=== PATIENT | female | born 1995 | race Caucasian/White ===

== ENCOUNTER 2023-12-25 04:54 | Emergency (ER) | payer OTHER, SELFPAY ==
[2023-12-25 04:58] VITALS: BP 128/84; PULSE 77; RESP 16; TEMP 36.7; O2SAT 100; BMI 23.0
[2023-12-25 05:06] VITALS: BP 128/84; PULSE 89; O2SAT 98
--- NOTE | 2023-12-25 05:19 | ED_ITS ---
HPI - Female Genitourinary 2 General: Chief complaint: Urogenital-Female Stated complaint: Preg\Spotting Time Seen by Provider: 12/25/23 05:02 History of Present Illness: 28-year-old female presents emergency ro om she estimates she is approximately 5 weeks she is a G1, P0 LMP 12/18/2023. Patient's morning she began having some mild cramping and light spotting. She denies dysuria urgency or frequency. Associated symptoms: Deny abdominal pain Date of Last Menstrual Period: 11/18/23 Related Data Home Medications Medication Instructions Recorded Confirmed No Known Home Medications 11/08/23 11/08/23 Allergies Allergy/AdvReac Type Severity Reaction Status Date / Time No Known Allergies Allergy Unverified 11/08/23 17:29 Review of Systems 2 Const: Denies: fever(s) or chills Card: Denies: chest pain Resp: Denies: dyspnea GI: Denies: abdominal pain : Reports: vaginal bleeding; Denies: dysuria, urinary frequency, urinary urgency or pelvic pain Musc: Denies: neck pain or back pain Skin/Breast: Denies: rash PFSH ED 2 PFSH: Social History Smoking and tobacco/nicotine status: unknown if used tobacco/nicotine Female Reproductive History: Date of last menstrual period: 11/18/23 Physical Exam 2 Const: COMMON NORMALS: no acute distress GENERAL APPEARANCE: cooperative and comfortable ORIENTATION/CONSCIOUSNESS: Yes awake, Yes oriented to person, Yes oriented to place and Yes oriented to time HENMT: COMMON NORMALS: normocephalic, atraumatic and hearing grossly normal bilaterally HEAD & SCALP: normocephalic and atraumatic Resp: COMMON NORMALS: normal respiratory effort, No retractions, No use of accessory muscles and clear to auscultation bilaterally AUSCULTATION: clear to auscultation bilaterally Cardio: COMMON NORMALS: regular rate, regular rhythm and No murmurs present (Cardio) RATE: regular rate RHYTHM: regular rhythm GI: COMMON NORMALS: Soft to palpation and No hepatosplenomegaly present A USCULTATION: Yes normoactive bowel sounds PALPATION: Yes Soft to palpation, No Tenderness to palpation present (GI), No Guarding due to palpation present (GI) and Yes No hepatosplenomegaly present Extremity: COMMON NORMALS: normal to inspection, capillary refill normal, no clubbing, cyanosis or edema, no calf tenderness and no pedal edema Neuro: SENSORIUM/ORIENTATION: Yes oriented to person, Yes oriented to place and Yes oriented to time Skin: COMMON NORMALS: no rashes or lesions noted GENERAL SKIN EXAM: no rashes or lesions noted Course 2 Vital Signs: Vital signs: Vital Signs Temperature 98.1 F 12/25/23 04:58 Pulse Rate 78 12/25/23 07:43 Respiratory Rate 16 12/25/23 04:58 Blood Pressure 131/71 12/25/23 07:43 Pulse Oximetry 99 12/25/23 07:43 MDM - Female Medical Decision Making Beta-hCG lower than expected for stated gestational age. Believe patient is correct on gestational age she is quite certain she had been keeping track of her. Specifically because her and her were trying to conceive. Discussed with her it is possible that she is not as far along as she thinks although given her certainty of her LMP I do not believe that to be the case. More concerning and she is having a miscarriage. Reviewed with her that at this point ultrasound would not be helpful because of the low hCG we would not be able to see anything we need to repeat a beta-hCG in 3 days. 3 days will fall onto weekend day so we will set her up for 5 days which will be on a Saturday case management to make an [facility]. Lab Data 12/25/23 05:09 12/25/23 05:09 Laboratory Results WBC 9.50 10^3/uL (3.29-11.43) 12/25/23 05:09 RBC 5.08 10^6/uL (3.85-5.65) 12/25/23 05:09 Hgb 14.40 g/dL (11.27-16.99) 12/25/23 05:09 Hct 44.0 % (36-47) 12/25/23 05:09 MCV 86.6 fl (85-98) 12/25/23 05:09 MCH 28.3 pg (27-33) 12/25/23 05:09 MCHC 32.7 g/dL (30-55) 12/25/23 05:09 RDW 12.9 % (12.1-15.1) 12/25/23 05:09 Plt Count 295 10^3/cmm (157-399) 12/25/23 05:09 MPV 9.2 fL (7.4-10.4) 12/25/23 05:09 Neut % (Auto) 70.7 % 12/25/23 05:09 Lymph % (Auto) 17.9 % 12/25/23 05:09 [place] % (Auto) 8.5 % 12/25/23 05:09 Eos % (Auto) 2.2 % 12/25/23 05:09 Baso % (Auto) 0.5 % 12/25/23 05:09 Neut # (Auto) 6.71 10^3/uL (1.8-7.7) 12/25/23 05:09 Lymph # (Auto) 1.7 10^3/uL (0.8-4.8) 12/25/23 05:09 [place] # (Auto) 0.8 10^3/uL (0.2-0.9) 12/25/23 05:09 Eos # (Auto) 0.2 10^3/uL (0.0-0.8) 12/25/23 05:09 Baso # (Auto) 0.1 10^3/uL (0.0-0.1) 12/25/23 05:09 Nucleated RBC % (auto) 0 % 12/25/23 05:09 Nucleated RBCs # 0.0 /100WBC 12/25/23 05:09 Sodium 139 mmol/L (136-145) 12/25/23 05:09 Potassium 3.7 mmol/L (3.5-5.1) 12/25/23 05:09 Chloride 101 mmol/L (98-107) 12/25/23 05:09 Carbon Dioxide 25 mmol/L (22-29) 12/25/23 05:09 Anion Gap 16.7 (5-19) 12/25/23 05:09 BUN 10 mg/dL (6-20) 12/25/23 05:09 Creatinine 0.7 mg/dL (0.5-0.9) 12/25/23 05:09 GFR Calculation 101.1 mL/min (90-130) 12/25/23 05:09 Glucose 101 mg/dL (65-115) 12/25/23 05:09 Calculated Osmolality 287 mOsm/kg (285-295) 12/25/23 05:09 Calcium 9.1 mg/dL (8.5-10.5) 12/25/23 05:09 Total Bilirubin 0.6 mg/dL (0.15-1.2) 12/25/23 05:09 AST 15 U/L (0-32) 12/25/23 05:09 ALT 9 U/L (0-33) 12/25/23 05:09 Alkaline Phosphatase 100 U/L (35-105) 12/25/23 05:09 Total Protein 8.0 g/dL (6.6-8.7) 12/25/23 05:09 Albumin 4.7 g/dL (3.5-5.2) 12/25/23 05:09 Globulin 3.3 g/dL (1.3-4.6) 12/25/23 05:09 Ser , Semi-Qnt 163.10 mIU/mL 12/25/23 05:09 Urine Color Red (Yellow) A 12/25/23 05:09 Urine Appearance Cloudy (CLEAR) A 12/25/23 05:09 Urine pH TNP 12/25/23 05:09 Ur Specific [place] TNP 12/25/23 05:09 Urine Protein TNP 12/25/23 05:09 Urine Glucose (UA) TNP 12/25/23 05:09 Urine Ketones TNP 12/25/23 05:09 Urine Blood TNP 12/25/23 05:09 Urine Nitrate TNP 12/25/23 05:09 Urine Bilirubin TNP 12/25/23 05:09 Urine Urobilinogen TNP 12/25/23 05:09 Ur Leukocyte Esterase TNP 12/25/23 05:09 Urine RBC Too numerous to cnt /hpf (0-2) H 12/25/23 05:09 Urine WBC 40-55 /hpf (0-5) H 12/25/23 05:09 Ur Squamous Epith Cells 5-10 /hpf (0-5) H 12/25/23 05:09 Amorphous Sediment Not Reportable 12/25/23 05:09 Urine Bacteria 2+ /hpf (NONE) H 12/25/23 05:09 Rho(D) Type Rh positive 12/25/23 05:09 No radiology studies performed this visit Discharge Plan Discharge Patient Disposition: Home Clinical Impression: Threatened miscarriage in early Condition: Stable Prescriptions: No Action No Known Home Medications Discharge Orders: Discharge ED (Routine); Ordered 12/25/23 Ordered By: Leland Newman Discharge Diet: Usual diet Discharge Activity: Resume usual activity Patient Instructions: Threatened Miscarriage (ED), Opioid Safety, Pain Management Activity Restrictions/Additional Instructions: Thank you for choosing [facility] for your healthcare needs today. It is very important that you follow up as instructed or that you return to the Emergency Department should you have concerns or if your condition changes or worsens in any way. You were seen in the emergency room with concern of vaginal bleeding. Your beta-hCG is lower than would be expected for your current estimated gestational age of . This may indicate that you are having a miscarriage it may also be that you are earlier along in the that you first thought. Would recommend that you have a repeat beta-hCG in 3 days with your primary care doctor. Coding Level of Care Code ED Manager Style for [facility] Sutton
[2023-12-25 05:21] LABS: Basophils # 0.1 10^3/uL (0.0-0.1); Basophils % 0.5 %; Eosinophils # 0.2 10^3/uL (0.0-0.8); Eosinophils % 2.2 %; Lymphocytes # 1.7 10^3/uL (0.8-4.8); Lymphocytes % 17.9 %; Mean Corpuscular HGB Conc 32.7 g/dL (30-55); Mean Corpuscular Hemoglobin 28.3 pg (27-33); Mean Corpuscular Volume 86.6 fl (85-98); Mean Platelet Volume 9.2 fL (7.4-10.4); Monocytes # 0.8 10^3/uL (0.2-0.9); Monocytes % 8.5 %; Neutrophils # 6.71 10^3/uL (1.8-7.7); Neutrophils % 70.7 %; Nucleated Red Blood Cells % 0 %; Platelet Count 295 10^3/cmm (157-399); Red Blood Count 5.08 10^6/uL (3.85-5.65); Red Cell Distribution Width 12.9 % (12.1-15.1)
[2023-12-25 05:52] LABS: Alanine Aminotransferase 9 U/L (0-33); Albumin Level 4.7 g/dL (3.5-5.2); Alkaline Phosphatase 100 U/L (35-105); Anion Gap 16.7 (5-19); Aspartate Amino Transferase 15 U/L (0-32); Blood Urea Nitrogen 10 mg/dL (6-20); Calcium 9.1 mg/dL (8.5-10.5); Carbon Dioxide 25 mmol/L (22-29); Chloride 101 mmol/L (98-107); Creatinine Clr Calc Pharmacy 122.3386; Globulin 3.3 g/dL (1.3-4.6); Glomerular Filtration Rate 101.1 mL/min (90-130); Glucose 101 mg/dL (65-115); Osmolality Calculated 287 mOsm/kg (285-295); Potassium 3.7 mmol/L (3.5-5.1); Sodium 139 mmol/L (136-145); Total Bilirubin 0.6 mg/dL (0.15-1.2)
[2023-12-25 06:42] VITALS: PULSE 85; O2SAT 98
[2023-12-25 07:01] LABS: Add Urine Microscopic? YES; Urine Appearance Cloudy (CLEAR); Urine Color Red (Yellow)
[2023-12-25 07:02] LABS: Add Urine Culture? Yes; Bacteria Urine 2+ /hpf; RBC Urine TOO NUMEROUS TO CNT /hpf (0-2); WBC Urine 40-55 /hpf (0-5)
[2023-12-25 07:43] VITALS: BP 131/71; PULSE 78; O2SAT 99
--- NOTE | 2023-12-25 07:52 | DCPLANNER ---
Message sent to OBGYN for Urgent follow up-
== END 2023-12-25 07:44 | disposition home or self-care (01) ==
PROVIDERS: Emergency Provider Family Medicine
DX: O20.0 Threatened abortion (principal); Z3A.01 Less than 8 weeks gestation of pregnancy
CPT/HCPCS: 80053; 81001; 84702; 85025; 87086; 99283

== ENCOUNTER → 2023-12-26 11:02 | Outpatient (BNVA) | payer OTHER, SELFPAY | PROVIDERS: Visit Provider Nurse Practitioner Women's Health | DX: O20.0 Threatened abortion (principal) | CPT/HCPCS: 84702 ==

== ENCOUNTER → 2024-10-29 08:51 | Outpatient (BNVA) | payer OTHER, SELFPAY | PROVIDERS: Visit Provider Obstetrics & Gynecology | DX: N97.9 Female infertility, unspecified (principal) | CPT/HCPCS: 80053; 84146; 84443 ==

== ENCOUNTER → 2024-11-03 14:37 | Outpatient (BNVA) | payer OTHER, SELFPAY | PROVIDERS: Visit Provider Obstetrics & Gynecology | DX: R10.9 Unspecified abdominal pain (principal); N92.6 Irregular menstruation, unspecified; N83.01 Follicular cyst of right ovary | CPT/HCPCS: 76830 ==